=== PATIENT | female | born 1975 | race Caucasian/White ===

== ENCOUNTER 2017-10-12 02:46 | Emergency (ER) | payer MEDICAID, SELFPAY ==
[2017-10-12 02:49] VITALS: BP 120/77; PULSE 89; RESP 16; TEMP 36.8; O2SAT 98; BMI 23.3
--- NOTE | 2017-10-12 02:57 | ED.DCSUM_ITS ---
- ER Visit Summary Date of Service: 10/12/17 Chief Complaint: Abscess History of Present Illness: The patient is a 41 F reports an abscess to the right rib area for the past 4 days. She has had no spontaneous drainage from the wound. No fever. Physical Examination: Vital signs are unremarkable. Patient is in no acute distress and is nontoxic appearing. Heart is regular rhythm. Skin examination reveals a 2 x 4 cm fluctuant abscess to the right lateral lower ribs. There is minimal cellulitis. Test Results: [] Emergency Department Course and Treatment: Patient be treated with a course of Bactrim and Keflex, first dose given here. Let was applied to the area of abscess. 30 minutes later I attempted to infiltrate the area with lidocaine. Patient was unable to tolerate even a brief stab with the needle to inject lidocaine and refused I&D. Should be given antibiotics and encouraged use warm compresses. Treatment Plan: [] Disposition: Discharge Impression: Cutaneous abscess This note was generated with [employer] dictation software. It may contain incorrect words, spelling, and punctuation that were not noted in review of the chart prior to signing ED Disposition - Plan for ED Patient: Chief Complaint: Abscess Referrals: Marjorie Carr MD [Primary Care Provider] -
--- NOTE | 2017-10-12 03:45 | ED.DEP ---
ED Disposition - Plan for ED Patient: Disposition: Home or Assisted Living Chief Complaint: Abscess Instructions: ED Staph Infec Abx Tx Only Prescriptions: Cephalexin [Keflex] 500 mg PO Q6 #40 capsule Smz/Tmp Ds [Bactrim Ds] 1 tablet PO BID #20 tablet Referrals: Marjorie Carr MD [Primary Care Provider] - 1 Week
[2017-10-12] MEDS: Cephalexin 500 MG Capsule PO (03:54)
[2017-10-12] MEDS: Lidocaine/Epi/Tetracaine 50 ML 1 APPLIC TOPICAL (03:55)
[2017-10-12] MEDS: Smz/Tmp Ds Tablet 1 TABLET PO (03:55)
--- NOTE | 2017-10-12 03:59 | NURSING ---
[T WAS UNABLE TO TOLERATE THE I&D, REFUSED. WAS VERY RUDE UPON D/C, RIPPED OFF WRISTBAND, AND STORMED OUT.
[2017-10-12 04:01] VITALS: RESP 16
== END 2017-10-12 04:02 | disposition home or self-care (01) ==
PROVIDERS: Emergency Provider Emergency Medicine; Family Provider Internal Medicine; PCP Internal Medicine
DX: L02.213 Cutaneous abscess of chest wall (principal); L03.313 Cellulitis of chest wall; F32.9 Major depressive disorder, single episode, unspecified; Z72.0 Tobacco use; Z79.899 Other long term (current) drug therapy
CPT/HCPCS: 99283